=== PATIENT | female | born 1990 | race Caucasian/White ===

== ENCOUNTER 2024-09-01 08:07 | Day surgery (SDC) | payer MEDICARE, MEDICAID ==
[~2024-09-01] VITALS: Ht 170.2 cm; Wt 90.1 kg
[~2024-09-01 08:07] MED LIST: ALPR-624 PO; FLUV100C2 PO; LAMO25TA72 PO; LEVOTHYROXINE 25 MG PO; LURA60TA4 PO; NORG1TAB12; PALI234D IM; PRAZ1CAP5 PO; PROM25TA14 PO; ROSU10TA72 PO
[2024-09-01 08:40] VITALS: BP 126/86; PULSE 104; RESP 17
[2024-09-01] MEDS ORDERED: MIDAZolam 1 MG/ML 5ML VIAL ONE (09:40)
[2024-09-01] MEDS ORDERED: fentaNYL/PF 50MCG/1 ML 2ML syringe ONE (09:40)
[2024-09-01] MEDS ORDERED: propofol 10mg/ml 20ml vial IV ONE (09:52)
[2024-09-01 10:20] VITALS: BP 126/90; PULSE 103; RESP 18; O2SAT 95
[2024-09-01 10:30] VITALS: BP 113/76; PULSE 98; RESP 15; O2SAT 98
[2024-09-01 10:40] VITALS: BP 113/82; PULSE 95; RESP 15; O2SAT 94
[2024-09-01 10:50] VITALS: BP 119/75; PULSE 92; RESP 14; O2SAT 94
--- NOTE | 2024-09-07 09:41 | PATHOLOGY REPORT ---
[facility] [address] [place] [address] SURGICAL PATHOLOGY REPORT CaseNumber: [id number] Surgeon:Tisha Hodges M.D. CLINICAL INFORMATION CLINICAL INFORMATION: Gastroesophageal reflux. Persistent vomiting. DIAGNOSIS DIAGNOSIS: GASTRIC ANTRUM, BIOPSIES X 2 - NO SIGNIFICANT INFLAMMATION, EDEMA, OR VASCULAR CONGESTION - NO INTESTINAL METAPLASIA - NO DYSPLASIA OR MALIGNANCY - NO H. PYLORI ORGANISMS BY IMMUNOHISTOCHEMISTRY MICROSCOPIC DESCRIPTION MICROSCOPIC DESCRIPTION: Reviewed is a single H&E-stained slide showing sections of gastric antral-ty pe mucosa. Aside from three small benign lymphoid aggregates, there is no significant inflammation. There is no intestinal metaplasia. No dysplastic or neoplastic features are identified. Also, no H . pylori organisms are highlighted by immunohistochemistry. GROSS DESCRIPTION GROSS DESCRIPTION: Received in a container of formalin labeled with the patient's name, number, and " antrum BX" are 2 pieces of machado tissue 0.3 and 0.4 x 0.2 x 0.1 cm. The specimen is entirely submitted as A1. The time at which the specimen was removed was 1010. The time at which the specimen was placed in formalin was 1010. Electronically signed by: Pancho Hawthorne M.D. 09/07/2024 9:02:00 AM
== END 2024-09-01 11:10 | disposition home or self-care (01) ==
LOC: GI LAB 08:07
PROVIDERS: ATTEND Internal Medicine Gastroenterology
DX: K21.00 Gastro-esophageal reflux disease with esophagitis, without bleeding (principal); K31.89 Other diseases of stomach and duodenum; F31.9 Bipolar disorder, unspecified; Z88.6 Allergy status to analgesic agent; Z88.8 Allergy status to other drugs, medicaments and biological substances; Z04.9 Encounter for examination and observation for unspecified reason
CPT/HCPCS: 43239; A4620; J2250; J2704; J3010; J7040; Z7512